=== PATIENT | female | born 1955 | race Caucasian/White ===

== ENCOUNTER 2017-05-22 05:24 | Inpatient (IN) | payer OTHER ==
[2017-05-15 09:20] LABS: HEMATOCRIT 37.5 % (37.0-47.0); MCHC 34.6 g/dL (28.0-37.0); MCV 86.8 fL (80.0-100.0); RBC 4.33 mil/uL (4.20-5.00); WBC 6.1 thou/uL (4.0-11.0)
[2017-05-15 09:32] LABS: ALBUMIN 3.6 g/dL (3.4-5.0); CALCIUM 9.7 mg/dL (8.5-10.1); CREATININE 0.7 mg/dL (0.6-1.0); POTASSIUM 4.5 mmol/L (3.5-5.1)
[2017-05-15 09:38] LABS: PROTIME 8.9 Seconds (9.3-11.4)
[2017-05-15 09:42] LABS: URINE BILIRUBIN NEGATIVE (Negative); URINE BLOOD NEGATIVE (Negative); URINE CLARITY CLEAR; URINE COLOR YELLOW; URINE GLUCOSE-RANDOM* NEGATIVE (Negative); URINE KETONES NEGATIVE (Negative); URINE LEUKOCYTES-REFLEX NEGATIVE (Negative); URINE NITRITE-REFLEX NEGATIVE (Negative); URINE PROTEIN (DIPSTICK) NEGATIVE (Negative); URINE SPECIFIC GRAVITY <= 1.005 (1.005-1.035); URINE UROBILINOGEN 0.2 E.U./dl (0.2-1.0)
[~2017-05-22] VITALS: Ht 157.5 cm; Wt 89.4 kg
--- NOTE | ~2017-05-22 | HC ---
[facility] [place] [address] CONSULTATION Name: BLANEBILLINGRID DEL TORO Room #: 410-P [facility] IN M.R.#: [id number] Admission: 05/22/17 Attend Phys: Eleuterio Gibson MD Discharge: 05/23/17 Date of : 57 Report #: [id number] THIS REPORT FOR: //name// CC: Eleuterio Farrell REASON FOR CONSULTATION: Consult has been requested for management of hypertension. HISTORY OF PRESENT ILLNESS: The patient is a 61-year-old female with history of hypertension and gastroesophageal reflux disease, who was admitted yesterday for right hip total arthroplasty. The patient is seen postoperatively in the room. The patient denies any complaint. The pain is well controlled. The patient has ambulated well with physical therapist and is in fact eager to go home today. The patient denies any chest pain, dizziness or palpitation. No nausea or vomiting. PAST MEDICAL HISTORY: Significant for hypertension. No history of any diabetes, no coronary artery disease. History of gastroesophageal reflux disease and Herring esophagus: History of depression. She has undergone partial small-bowel resection in the past, repair of hernia. History of anterior cervical diskectomy and fusion, left total hip replacement, history of colonoscopy and tubal ligation. ALLERGIES: She is allergic to HYDROCODONE and ____. HOME MEDICATIONS: Reviewed, please look at the nursing documentation of home meds. FAMILY HISTORY: Noncontributory. She has history of diabetes in the family. SOCIAL HISTORY: No smoking, alcohol abuse, or illicit drug abuse. REVIEW OF SYSTEMS: CONSTITUTIONAL: No weight change. No fever or chills. EYES: No change in vision. THROAT: Denies any sore throat. CARDIOVASCULAR: No chest pain, no dizziness. RESPIRATORY: No cough or expectoration. GASTROINTESTINAL: No nausea or vomiting. GENITOURINARY: No dysuria, hematuria. NEUROLOGIC: No focal numbness or weakness of the extremities. PSYCHIATRIC: No anxiety or depression. A 12-point review of system is negative other than the positive and negative dictated in the history of present illness and the review of system. [facility] [address] [place] [address] CONSULTATION Name: BLANEBILLINGRID DEL TORO Room #: 410-P [facility] IN ..#: [id number] Admission: 05/22/17 Attend Phys: Eleuterio Gibson MD Discharge: 05/23/17 Date of : 57 Report #: [id number] PHYSICAL EXAMINATION: VITAL SIGNS: Reviewed. Blood pressure 95/62, heart rate of 87 per minute, afebrile. GENERAL: The patient is awake and alert, not in acute respiratory distress. EYES: Pupils equal, reactive to light, nonicteric, conjunctivae. NECK: Supple. No JVD, no bruit, no lymphadenopathy. CARDIOVASCULAR SYSTEM: S1, S2, negative S3, no murmur. CHEST: Bilateral air entry present. Clear on auscultation. ABDOMEN: Soft, bowel sounds present. No mass, no organomegaly, no tenderness. PERIPHERY: No pedal edema. No calf tenderness. Dorsalis pedis 1+. NEUROLOGICAL: No gross motor or sensory deficit. LABORATORY DATA: Reviewed. White count was 18.9 yesterday. White count is 12.4 today. Hemoglobin is 10.7, platelet is 267. ASSESSMENT AND PLAN: 1. Hypertension. The patient's blood pressure is on the low end at 95/62. The patient is completely asymptomatic. Low blood pressure, likely multifactorial. The patient is eager to go home. 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 I told her to restart her antihypertensive when the systolic blood pressure is more than 130. I have advised her to continue monitoring her blood pressure and encouraging p.o. fluids. 2. Mild anemia secondary to acute blood loss. Hemoglobin is 10.7 today. Home meds will be arranged. We will have her hemoglobin rechecked in a couple of days. 3. Status post hip arthroplasty. Postoperative course as per orthopedic surgery. Deep venous thrombosis prophylaxis as per Orthopedic Surgery. 4. Depression. The patient is on Cymbalta, this will be continued. Treatment plan has been explained to the patient in detail. <ELECTRONICALLY SIGNED> By: Wayne Brand MD 05/25/17 1354 [id number] 44 Wayne Brand MD /nt
--- NOTE | ~2017-05-22 | O ---
[facility] [address] [address] OPERATIVE REPORT Name: INGRID BECERRA Room #: 410-P [facility] IN M.R.#: [id number] Admission: 05/22/17 Attend Phys: Eleuterio Gibson MD Discharge: 05/23/17 Date of : 57 Report #: [id number] THIS REPORT FOR: //name// CC: Eleuterio Farrell DATE OF SERVICE: 05/22/2017 PREOPERATIVE DIAGNOSIS: Right hip osteoarthritis. POSTOPERATIVE DIAGNOSIS: Right hip osteoarthritis. PROCEDURE: Right total hip arthroplasty. SURGEON: Eleuterio Gibson MD. CIVIL STRUCTURAL DESIGNER: Danitza Davenport PA-C INDICATIONS FOR ASSISTANCE: Throughout the case dislocation and reduction of the hip as well as retraction was required. This was afforded to me by my physician occupational therapist assistant. ANESTHESIA: General. IMPLANTS: [employer] size 11 high offset Synergy press fit stem, a size 48 R3 acetabular cup with 1 acetabular screw and a size 32+0 Oxinium head. ESTIMATED BLOOD LOSS: 200 mL. COMPLICATIONS: None. SPECIMENS: None. CONDITION UPON LEAVING THE OPERATING ROOM: Stable. INDICATION FOR PROCEDURE: The patient is a 61-year-old female with right hip osteoarthritis who failed conservative treatment for this and after discussion with her, she elected for right total hip arthroplasty. DESCRIPTION OF PROCEDURE: Risks, benefits, alternatives, complications were discussed in detail with the patient including but not limited to risk of anesthesia, risk of damage to nerves, arteries, blood vessels, risk for infection, bleeding, risk for hip instability, leg length discrepancy and need for reoperation. Informed consent was obtained from the patient. Right hip was appropriately marked in the preoperative holding area. IV Ancef was given for preoperative antibiotics. She was brought to the operating room and placed in [address] [address] OPERATIVE REPORT Name: BLANEBILLINGRID DEL TORO Room #: 410-P [facility] IN M.R.#: [id number] Admission: 05/22/17 Attend Phys: Eleuterio Gibson MD Discharge: 05/23/17 Date of : 57 Report #: [id number] the supine position on the operating room table. General endotracheal anesthesia was induced without complication. She was then placed in the left lateral decubitus position with the right hip uppermost. Right hip and lower extremity were prepped and draped in normal sterile fashion. Timeout was performed properly identifying the patient and procedure as well as the instrumentation. All in the operating room were in agreement. A standard posterior approach to the hip was made with #10 blade through the skin. Dissection was taken down to the fascia with Bovie cautery and the fascia was cleaned off with Preciado elevator. A fresh #10 blade was used to make a fascial incision. This was taken proximally and distally with curved Spencer scissor. Charnley retractor was placed. Trochanteric bursa was taken down with Bovie cautery. Piriformis tendon was identified, tagged and taken down with Bovie. Short external rotators were also taken down with Bovie cautery. Capsulotomy was made and capsule ends were tagged for later repair. Hip dislocated and there was extensive osteoarthritic change of the femoral head. Femoral neck cut was then made 1 cm proximal to the lesser trochanter based on preoperative templating and the femoral head was removed. Deep acetabular retractors were placed. The labrum was removed sharply. Pulvinar was removed with Bovie cautery. Acetabulum was then sequentially reamed up to a size 48 at which point, there was excellent bleeding cancellous bone. There was a superior anterior acetabular cyst that was curetted out. The acetabular cyst was then bone grafted with the reaming and a size 48 R3 acetabular cup was seated. One acetabular screw was placed for backup fixation. A polyethylene liner for 32 head was placed. After this, attention was turned to the femur. This was reamed and broached up to a size 11 at which point a size 11 broach was stable. This was trialed with a high offset neck and a 32+0 head. Hip was reduced, taken through range of motion, found to be stable, found to have equal leg lengths. The broach was removed and a final size 11 high offset Synergy press fit stem was placed. This was seated to the level of the broach and this was trialed again with a 32+0 head. Hip was reduced, taken through range of motion, found to be stable, found to have equal leg lengths. Hip was dislocated again and a final size 32+0 Oxinium head was placed. Hip again was reduced, taken through range of motion, found to be stable, found to have equal leg lengths. Periarticular injection consisting of morphine, ropivacaine, epinephrine and Toradol was placed around the hip joint. A gram of vancomycin was placed deep in the hip joint. The capsule and piriformis were repaired with 0 FiberWire. The fascia was closed with 0 Vicryl, skin was closed with 2-0 Vicryl, 3-0 Monocryl. Dermabond and a FAROOQ dressing was applied. The patient tolerated this procedure well and went to recovery room under care of anesthesia postoperatively. <ELECTRONICALLY SIGNED> By: Eleuterio Gibson MD 05/24/17 1739 1721 1751 Eleuterio Gibson MD /nt
--- NOTE | ~2017-05-22 | EKG ---
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: Chinmay KINNEY : 1955 Requested By: Eleuterio Gibson Order Number: [id number] MD: Gokul Sánchez Measurements Intervals Calvin Rate: 84 P: 19 MO: 165 QRS: 28 QRSD: 81 T: 34 QT: 355 QTc: 420 Interpretive Statements Sinus rhythm Low voltage, precordial leads Baseline wander in lead(s) V6 Compared to ECG 06/29/2013 09:31:36 No significant changes Electronically Signed On 05-16-2017 7:43:20 [employer] by Gokul Sánchez [email or web address] <ELECTRONICALLY SIGNED> By: Gokul Sánchez MD, [facility] 05/16/17 0743 2 Gokul Sánchez MD, [facility] /EPI
[~2017-05-22 05:24] MED LIST: AMBIEN 10 MG TA10 MG PO; APAP500 PO; COLACE100 MG PO; COUMADIN 2 MG TA2 M1 PO; COUMADIN 5 MG TA5 M1 PO; CYMBALTA60 MG PO; ETODOLAC500 MG PO; HYDROCODON-ACE1 EAC7 PO; LISINOPRIL10 MG PO; LISINOPRIL20 MG PO; LODINE 200MG C200 M1; LODINE XL500 MG PO; LODINE500 MG PO; MULTIVITAMINS1 EAC7 PO; PERCOCET 10-321 EACH PO; PERCOCET 5-3251 EACH PO; PERCOCET PO; PRILOSEC 20 MG20 MG PO; PRILOSEC40 MG PO; PRINZIDE 20-121 EACH PO; VALIUM5 MG PO; VITAMIN D1000 UNI1 PO; VITAMIN D32000 UNI1 PO; VITAMIN D400 UNI1 PO; ZANAFLEX4 MG PO; ZESTORETIC 20-1 EAC3 PO
[2017-05-22 14:15] VITALS: BP 119/75
[2017-05-22 17:59] LABS: HEMATOCRIT 35.5 % (37.0-47.0); HEMOGLOBIN 12.1 gm/dL (12.0-15.0); MCH 29.6 pg (26.0-34.0); MCV 87.2 fL (80.0-100.0); RBC 4.08 mil/uL (4.20-5.00); RDW 12.5 % (10.5-14.5); WBC 18.9 thou/uL (4.0-11.0)
[2017-05-22 20:00] VITALS: BP 105/60
[2017-05-23] VITALS (7 sets, daily range): BP systolic 92–119; BP diastolic 35–71
[2017-05-23 06:06] LABS: HEMATOCRIT 31.2 % (37.0-47.0); HEMOGLOBIN 10.7 gm/dL (12.0-15.0); MCH 29.7 pg (26.0-34.0); MCHC 34.2 g/dL (28.0-37.0); MCV 86.8 fL (80.0-100.0); RBC 3.6 mil/uL (4.20-5.00); RDW 12.7 % (10.5-14.5); WBC 12.4 thou/uL (4.0-11.0)
[2017-05-24 11:31] VITALS: BP 112/55
== END 2017-05-23 18:05 | disposition home health service (06) | DRG 470 ==
LOC: 4N 05:24 → TBA 05:24 → PRE 05:35 → OR 08:49 → EDSTATUS 08:53 → PRE 08:56 → 4N 18:32 → ENTRNSPT 05-23 17:49 → 4N 05-23 18:05
PROVIDERS: Anesthesiology; Orthopaedic Surgery
PROC: 0SR906Z Replacement of Right Hip Joint with Oxidized Zirconium on Polyethylene Synthetic Substitute, Open Approach (ICD-10-PCS; principal; 2017-05-22)
DX: M16.11 Unilateral primary osteoarthritis, right hip (principal); D62 Acute posthemorrhagic anemia; I10 Essential (primary) hypertension; K21.9 Gastro-esophageal reflux disease without esophagitis; F32.9 Major depressive disorder, single episode, unspecified; M54.2 Cervicalgia; G89.29 Other chronic pain; M79.7 Fibromyalgia; Z96.642 Presence of left artificial hip joint; Z79.899 Other long term (current) drug therapy; Z88.6 Allergy status to analgesic agent; Z88.8 Allergy status to other drugs, medicaments and biological substances
CPT/HCPCS: 10790; 50010; 50101; 50382; 50414; 51771; 53000; 53078; 53368; 54118; 56524; 56527; 56528; 56530; 57095; 62110; 62900; 70005

== ENCOUNTER → 2018-06-06 | Outpatient (CLI) | payer OTHER ==
[2018-06-06 11:51] LABS: BF CRYSTALS No Crystals seen; CLARITY TURBID; COLOR RED; SOURCE SYNOVIAL; TOTAL VOLUME 6 mL
[2018-06-06 12:39] LABS: BF NUCLEATED CELLS 2898; BF RBC 99150
[2018-06-06 12:51] LABS: BF NEUTROPHILS 7
[2018-06-06 12:52] LABS: BF MACROPHAGE 21
== END | disposition home or self-care (01) ==
LOC: RAD 06-04 11:55
PROVIDERS: Orthopaedic Surgery
DX: M25.551 Pain in right hip (principal); Z96.641 Presence of right artificial hip joint; Z88.8 Allergy status to other drugs, medicaments and biological substances; Z79.899 Other long term (current) drug therapy